=== PATIENT | female | born 1965 | race Caucasian/White ===

== ENCOUNTER 2023-05-23 17:44 | Emergency (ER) | payer MEDICAID, SELFPAY ==
[2023-05-23] VITALS (38 sets, daily range): BP systolic 97–112; BP diastolic 52–60; PULSE 89–141; TEMP 36.7; O2SAT 91–99; BMI 24.6
--- NOTE | 2023-05-23 18:09 | ED.ALCOHOL1 ---
HPI - Alcohol General Chief Complaint: Alcohol Stated Complaint: Medical Clearance Time Seen by Provider: 05/23/23 17:46 Source: patient Mode of arrival: walk-in History of Present Illness HPI narrative: This patient comes to us from the [facility] rehab facility. Her blood alcohol at that facility was 0.246 and climbing according to the records. She has been drinking heavily recently. She was in a rehab program in [facility] at [facility] earlier this month according to the patient. She drank a small bottle of tequila shortly before coming to the emergency room here. She says she has been jaundiced for at least several weeks and was told that her liver was bad when she was at that other for the. She has been having frequent falls and has bruising throughout her trunk torso and extremities. She says she has never been through delirium tremens. She does not have any family appear but she does have family in the [facility] area and she says she spoke with within the last week or so. She does not have a local physician in this area. She denies illicit drugs or street drugs. She does not use cocaine or tobacco products. The patient does admit to being a diabetic and she says she is supposed to use insulin 3 times a day but does not when she has been drinking. Related Data Allergies Allergy/AdvReac Type Severity Reaction Status Date / Time No Known Drug Allergies Allergy Verified 05/23/23 17:56 Exam Narrative Exam Narrative: Patient is awake alert her airway is protected. She has clear scleral icterus and jaundice of the extremities and skin. She is oriented x 3. Words are slightly slurred. I do smell alcohol on her breath. She knows the time date and year and her location. Her vital signs are stable. She is not tachycardic. She has no tremors. As I said she has scleral icterus. Oral cavity shows no evidence of trauma or injury. She has no hematomas or contusions about her cranium. She denies any neck pain. Her lungs were clear with no wheeze rales or rhonchi heart sounds are normal. Musculoskeletal system shows normal movement of all the joints. However she has a large amount of ecchymosis in the left lower back and her upper chest and shoulder area. She does not have any edema. Denies any abdominal pain. Neurological she has no focal neurological deficits or symptomatology. Constitutional Vital Signs, click to edit/add: Last Vital Signs Temp 98.1 F 05/23/23 17:50 Pulse 102 H 05/23/23 17:50 Resp 16 05/23/23 17:50 BP 112/55 05/23/23 17:50 Pulse Ox 98 05/23/23 17:50 O2 Del Method Room Air 05/23/23 17:50 Course Vital Signs Vital signs: Vital Signs Temperature 98.1 F 05/23/23 17:50 Pulse Rate 102 H 05/23/23 17:50 Respiratory Rate 16 05/23/23 17:50 Blood Pressure 112/55 05/23/23 17:50 Pulse Oximetry 98 05/23/23 17:50 Oxygen Delivery Method Room Air 05/23/23 17:50 Temperature 98.1 F 05/23/23 17:50 Pulse Rate 102 H 05/23/23 17:50 Respiratory Rate 16 05/23/23 17:50 Blood Pressure 112/55 05/23/23 17:50 Pulse Oximetry 98 05/23/23 17:50 Oxygen Delivery Method Room Air 05/23/23 17:50 Discharge Plan Discharge Chief Complaint: Alcohol Clinical Impression: Alcoholic intoxication Patient Disposition: Still a Patient Print Language: Kinyarwanda Referrals: Physician,Non-Staff, MD [Primary Care Provider] - 1 week
--- NOTE | 2023-05-23 18:12 | CT_ITS ---
[address] [address] Patient Name: JOSEPH GHOSH MRN: [id number] date: 1965 Sex: F Assigned Patient Location: ER Current Patient Location: Accession/Order Number: [id number] Exam Date: 05/23/2023 18:39 Report Date: 05/23/2023 20:08 At the request of: KOJO SERRA Procedure: CT abdomen pelvis wo con EXAM: CT abdomen pelvis wo con HISTORY: Fall/collateral back pain COMPARISON: None. TECHNIQUE: Unenhanced helical acquisition obtained through the abdomen and the pelvis. FINDINGS: Cardiomegaly. Severe calcification of the partially included left circumflex coronary artery. Mild subsegmental atelectasis and/or pulmonary scarring within the included lung bases. The pleural spaces are clear. Mild nodularity of the liver contour. Relative hypertrophy of the left hepatic lobe. Splenomegaly with the spleen measuring 16 cm craniocaudal length. Splenorenal shunt. Mild gallbladder distention. No significant biliary ductal dilatation. The pancreas, adrenal glands and the kidneys are unremarkable. Periampullary duodenal diverticulum. Moderate atherosclerotic disease. No enlarged lymph nodes within the abdomen. No enlarged lymph nodes within the pelvis. Subcutaneous left gluteal soft tissue hematoma measuring approximately 10 x 10 x 5.9 cm. Diverticulosis without radiographic evidence of diverticulitis. Trace ascites. CT/CT abdomen pelvis wo con IMPRESSION: 1. Approximately 10 x 10 x 5.9 cm subcutaneous left gluteal soft tissue hematoma. No fractures are identified. 2. Cirrhotic morphology of the liver. Splenomegaly and splenorenal shunt indicating portal venous hypertension. 3. Cardiomegaly. Severe calcification of the partially visualized left circumflex coronary artery. 4. Trace ascites. 5. Diverticulosis without radiographic evidence of diverticulitis. Electronically authenticated by: DRAGAN RENTERIA Date: 05/23/2023 20:08
--- NOTE | 2023-05-23 18:12 | CT_ITS ---
The [address] [address] Patient Name: JOSEPH GHOSH MRN: [id number] date: 1965 Sex: F Assigned Patient Location: ER Current Patient Location: ED.[facility] Accession/Order Number: [id number] Exam Date: 05/23/2023 18:39 Report Date: 05/23/2023 19:06 At the request of: KOJO SERRA Procedure: CT head/brain wo con CT head/brain wo con, 05/23/2023 6:39 PM EDT INDICATION: Fall COMPARISON: There is no appropriate prior study for comparison. TECHNIQUE: Axial CT images of the brain from skull base to vertex, including portions of the face and sinuses, were obtained without contrast . Multiplanar reformatted images were generated and reviewed as needed. Dose reduction techniques were achieved by using automated exposure control and/or adjustment of mA and/or kV according to patient size and/or use of iterative reconstruction technique. FINDINGS: There is status post bilateral frontal craniotomy. The cerebral sulci as well as ventricular system are appropriate for age. There is no intracranial mass, mass effect, midline shift, intra or extra-axial fluid collection or hemorrhage. The visualized portions of orbits, mastoid air cells as well as paranasal sinuses are unremarkable. There is status post bilateral lens replacement. There is no suspicious osteolytic or osteoblastic lesion. CT/CT head/brain wo con IMPRESSION: No acute intracranial process is noted. Electronically authenticated by: WILFRIDO BODY Date: 05/23/2023 19:06
--- NOTE | 2023-05-23 18:15 | XR_ITS ---
The [address] [address] Patient Name: JOSEPH GHOSH MRN: [id number] date: 1965 Sex: F Assigned Patient Location: ER Current Patient Location: ED.MAIN Accession/Order Number: [id number] Exam Date: 05/23/2023 18:39 Report Date: 05/23/2023 19:49 At the request of: KOJO SERRA Procedure: XR chest 1V EXAMINATION: XR chest 1V, , 05/23/2023 6:39 PM EDT INDICATION: Weakness HISTORY: Ordering Provider Reason for Exam: Weakness Technologist Note: Additional: COMPARISON: None. TECHNIQUE: Chest x-ray: One view. FINDINGS: No pneumothorax, pleural effusion or focal airspace consolidation. Heart is normal in size. Bony thorax is unremarkable. XR/XR chest 1V IMPRESSION: No acute cardiopulmonary process. Electronically authenticated by: ALYSSIA ALEGRE Date: 05/23/2023 19:49
[2023-05-23] MEDS: THIAMINE HCL 200 MG/2 ML VIAL 100 MG IM (18:28)
[2023-05-23] MEDS: 0.9 % SODIUM CHLORIDE 1,000 ML 1000 ML IV (18:28)
[2023-05-23 18:30] LABS: Hematocrit 27.2 % (36.0-48.0); Hemoglobin 8.5 g/dL (12.0-16.0); Mean Corpuscular HGB Conc 31.3 g/dL (29.9-35.2); Mean Corpuscular Hemoglobin 30.5 pg (26.7-34.0); Mean Corpuscular Volume 97.5 fL (81.0-99.0); Mean Platelet Volume 9.9 fL (9.5-13.5); Platelet Count 120 10^3/uL (150-450); Red Blood Count 2.79 10^6/uL (4.20-5.40); White Blood Count 9.9 10^3/uL (4.0-11.0)
[2023-05-23 18:36] LABS: Magnesium 1.9 mg/dL (1.8-2.4)
[2023-05-23 18:45] LABS: Alanine Aminotransferase 79 U/L (14-59); Albumin Level 3.1 g/dL (3.4-5.0); Alkaline Phosphatase 261 U/L (46-116); Anion Gap 19.9; Aspartate Amino Transferase 133 U/L (15-37); BUN Creatinine Ratio 11.9; Calcium 9.3 mg/dL (8.5-10.1); Carbon Dioxide 18.3 mmol/L (21.0-32.0); Chloride 99 mmol/L (98-107); Estimated GFR (African America >60 (>=60); Estimated GFR (Non-African Ame >60 (>=60); Ethanol 276 mg/dL; Globulin 3.2 g/dL; INR 1.43; Potassium 3.2 mmol/L (3.5-5.1); Prothrombin Time 14.9 sec (9.0-11.6); Sodium 134 mmol/L (136-145); Total Protein 6.3 g/dL (6.4-8.2); Troponin I High Sensitivity 5.3 pg/mL (4.0-51.3)
[2023-05-23 18:47] LABS: Band Neutrophils Absolute 0.3 10^3/uL (0.0-0.3); Lymphocytes Absolute Manual 1.18 10^3/uL (1.20-3.80); Metamyelocytes Absolute Manual 0.19; Monocytes Absolute Manual 0.59 10^3/uL (0.30-0.80); Myelocytes Absolute Manual 0.09; Segmented Neut Absolute Manual 7.52 10^3/uL (1.4-6.5)
[2023-05-23 18:49] LABS: Glucose 516 mg/dL (74-106)
[2023-05-23] MEDS: INSULIN REGULAR 300 UNITS/3 ML 8 UNIT SUBQ (19:08)
[2023-05-23 20:31] LABS: Glucometer 430 mg/dL (74-106)
[2023-05-23 20:32] LABS: Bilirubin Urine SMALL (NEGATIVE); Blood Urine NEGATIVE (NEGATIVE); Clarity Urine CLEAR (CLEAR); Color Urine YELLOW (YELLOW); Glucose Urine UA >=1000 mg/dL (NEGATIVE); Ketones Urine NEGATIVE (NEGATIVE); Leukocyte Esterase Urine TRACE (NEGATIVE); Nitrite Urine NEGATIVE (NEGATIVE); Protein Urine NEGATIVE (NEG/TRACE); Specific Gravity Urine <=1.005 (1.005-1.025)
[2023-05-23 20:36] LABS: Urine Microscopic Indicated YES
[2023-05-23 20:38] LABS: Bacteria Urine NONE SEEN #/HPF (NONE SEEN); Cast Seen? NONE SEEN #/LPF (NONE SEEN); Crystals Seen? None Seen #/HPF (None Seen); Mucus Urine NONE SEEN (NONE SEEN); RBC Urine 0-2 #/HPF (0-2); Squamous Epithelial Cell Urine FEW #/LPF (NONE/RARE); Urine Culture Indicated NO; WBC Urine 0-2 #/HPF (NONE SEEN)
[2023-05-23 20:43] LABS: Amphetamine Screen Urine NEGATIVE (NEGATIVE); Barbiturates Screen Urine NEGATIVE (NEGATIVE); Benzodiazepines Screen Urine POSITIVE (NEGATIVE); Buprenorphine Screen Urine NEGATIVE (NEGATIVE); Cannabinoid Screen Urine NEGATIVE (NEGATIVE); Cocaine Screen Urine NEGATIVE (NEGATIVE); Methadone Screen Urine NEGATIVE (NEGATIVE); Methamphetamines Screen Urine NEGATIVE (NEGATIVE); Opiate Screen Urine NEGATIVE (NEGATIVE); Oxycodone Screen Urine NEGATIVE (NEGATIVE); Phencyclidine Screen Urine NEGATIVE (NEGATIVE); Tricyclic Antidepressant Urine NEGATIVE (NEGATIVE)
[2023-05-23 20:54] LABS: Ammonia 22 umol/L (11-32)
[2023-05-23] MEDS: INSULIN REGULAR 300 UNITS/3 ML 8 UNIT IV (21:34)
[2023-05-23] MEDS: POTASSIUM CHLORIDE IN WATER 10 MEQ/100 ML PIGGYBACK 100 MEQ IV (21:36)
[2023-05-23] MEDS: POTASSIUM CHLORIDE 10 MEQ ER TABLET 40 MEQ PO (23:38)
[2023-05-23 23:43] LABS: Glucometer 389 mg/dL (74-106)
[2023-05-24 02:25] LABS: Glucometer 372 mg/dL (74-106)
[2023-05-24 02:52] VITALS: BP 111/57; PULSE 92; O2SAT 94
== END 2023-05-24 03:44 | disposition home or self-care (01) ==
PROVIDERS: Emergency Medicine Emergency Medical Services; Emergency Provider Emergency Medicine
DX: F10.129 Alcohol abuse with intoxication, unspecified (principal); E11.9 Type 2 diabetes mellitus without complications; Z79.4 Long term (current) use of insulin
CPT/HCPCS: 36415; 70450; 71045; 74176; 80053; 80307; 80320; 81001; 82140; 83735; 84484; 85007; 85027; 85610; 96365; 96372; 99285